=== PATIENT | male | born 2005 | race Caucasian/White ===

== ENCOUNTER 2023-09-04 13:00 | Inpatient (IN) ==
--- NOTE | 2023-09-04 13:41 | XRay Report ---
XR chest 1V portable HISTORY: Shortness of breath. Chest pain, nonspecific COMPARISON: None. FINDINGS: There is a left retrocardiac airspace opacity. The right lung is clear. No pleural effusion s. No pneumothorax. The heart is normal in size. No evidence for pulmonary edema. No acute fractures identified. IMPRESSION: A left retrocardiac airspace opacity. This likely represents a pneumonia. 1-2 month chest x-ray follo w-up recommended to ensure resolution. ACT 112: Negative or not required by law. Electronically signed by: Aj Hurt M.D. 09/04/2023 1:39 PM
--- NOTE | 2023-09-04 14:06 | Emergency Department Note ---
Impression & Plan SOB (shortness of breath), Pulmonary emboli, Pleuritic chest pain, Pneumonia, Leukocytosis ED Provider Note NAME: MATHEW ROQUE AGE: 17 SEX: M : 2005 ARRIVES VIA: Walk-In INFORMANT: [Patient] ED PROVIDER(S): [Shree Ortega MD] CHIEF COMPLAINT: Shortness of breath HISTORY OF PRESENT ILLNESS: The patient is a 17-year-old male with a history of bicuspid aortic valve who states that 2 weeks ago, he was diagnosed with pneumonia. He was on Augmentin for 1 week. He seemed about 80% better but then in the last week, things have worsened. He has been coughing more and in the last 24 hours has developed some left-sided chest pain that is worse to cough, breathe. He feels short of breath. Patient has a history of previous pneumothorax, he was concerned that he had redeveloped a pneumothorax. Patient does admit to a 5-hour car ride about a week ago, no history of previous DVT or PE. PMHx/PSHx/Social Hx: See Below PHYSICAL EXAM: GENERAL: Patient is in no acute distress. Thin. HEENT: No acute trauma, normocephalic atraumatic, mucous membranes moist, no nasal congestion. NECK: No stridor, no adenopathy, no meningismus, trachea is midline. LUNGS: Breath sounds somewhat diminished on the left. No wheezing or rhonchi, no respiratory distress. HEART: Without murmurs gallops or rubs, regular rate and rhythm. ABDOMEN: Soft, nontender, no peritonitis. EXTREMITIES: No cyanosis, full range of motion of all the joints without pain or difficulty. NEUROLOGIC: Oriented x 3, no acute motor or sensory deficits, no focal weakness. SKIN: No jaundice, no diaphoresis. DIFFERENTIAL DIAGNOSIS: Pneumonia, pneumothorax, PE, failed outpatient management, anemia, dysrhythmia or [place], among others. EMERGENCY DEPARTMENT PROCEDURES: MEDICAL DECISION MAKING: There is a mild leukocytosis, this could be consistent with infection. There was a normal hemoglobin and platelet count. INR slightly elevated at 1.2. No renal failure. No concerning electrolyte abnormality. Bilirubin was somewhat elevated at 2.2, the remaining liver enzymes were unremarkable. ECG showed a normal sinus rhythm, no obvious acute ischemia. Cardiac enzyme testing x 1 was not consistent with acute cardiac injury. Chest x-ray did show a left midlung pneumonia, no pneumothorax. Chest CT shows pulmonary emboli as well as a left- sided pneumonia. The patient presents with left sided pleuritic chest pain and dyspnea. He was recently treated outpatient with Augmentin for pneumonia. Patient was aggressively managed. He was given IV Toradol, IV doxycycline, IV ceftriaxone, albuterol via MDI, he was given IV Tylenol. Patient was given an IV bolus of heparin and placed on a heparin drip. The patient does appear to have pneumonia as well as pulmonary emboli. Certainly, both of these findings could explain his presentation. I spoke with the patient's mother over the phone. I spoke with the patient. Given the findings today, hospitalization is indicated. I did talk with case management, the on-call hospitalist was consulted. Patient does feel improved since treatment here in the ED. Prior/Outside records/notes reviewed: None. ECG per my interpretation: Indication was chest pain. The ECG shows a normal sinus rhythm with a rate of 86. There is an incomplete right bundle branch block. There is no acute ST elevation, no PVCs. The QTc is 430. Continuous Cardiac Monitoring per my interpretation: An order was placed for continuous cardiac monitoring. The monitor shows a rate of 81 with normal sinus rhythm. Imaging/x-ray results per my interpretation: Chest x-ray shows what appears to be a right midlung pneumonia. No pneumothorax or CHF. Chronic Medical/Social conditions affecting care: Previous pneumothorax. Care/Management discussed with: Case management, the on-call hospitalist. Level of care consideration(s): After review of the information above and other included data: --I believe the patient requires escalation of care to admission Critical Care Note: I have personally spent 51 minutes of critical care time in the direct management of this patient. This includes bedside care, interpretation of diagnostic studies, and testing, discussion with consultants, patient, and family members, and other required patient management activities. This 51 minutes is in excess of all separately billable procedures. DISPOSITION: Admission Past Med/Surg History Medical History Pneumothorax, right Social History Smoking Status: Never smoker Preferred Language: Greek Feels Safe at Home: Yes Allergies Allergies Allergy/AdvReac Type Severity Reaction Status Date / Time azithromycin [From Zithromax] Allergy Unknown Verified 09/04/23 15:02 Home Meds Home Medications Medication Instructions Recorded Confirmed lisdexamfetamine 10 mg capsule 10 mg PO DAILY 07/26/23 09/04/23 (Vyvanse) nadolol 40 mg tablet 40 mg PO DAILY 09/04/23 09/04/23 Previous Rx's Medication Instructions Recorded magnesium oxide 800 mg (2 x 400 mg magnesium) PO 08/04/23 DAILY #60 tabs riboflavin (vitamin B2) 400 mg 400 mg PO DAILY #30 tabs 08/04/23 tablet sumatriptan succinate 6 mg/0.5 mL 6 mg (0.5 mL) subcut ONCE #1 mL 08/04/23 subcutaneous pen injector (Imitrex STATdose Pen) Results & Data (ED) Vital Signs Vital Signs - 24 hr 09/04/23 13:12 09/04/23 13:17 09/04/23 13:17 Temperature 37.3 C Temperature Source Temporal Artery Scan Pulse Rate 93 H Pulse Rate [Apical] 81 Pulse Rhythm [Apical] Pulse Strength [Apical] Respiratory Rate 20 18 Respiratory Effort / Characteristics Non-Labored Spontaneous Respiratory Depth Normal Respiratory Pattern Regular Blood Pressure 110/73 Blood Pressure [Right Arm] 113/69 Blood Pressure Mean 85 Blood Pressure Mean [Right Arm] 83 Blood Pressure Position [Right Arm] Sitting Pulse Oximetry 94 97 96 Oxygen Delivery Method Room Air Room Air Room Air Sepsis Recent Fever Within 48 Hours No Sepsis New/Unexplained Change in Mental Status N/A Sepsis Action Taken by Nursing No Action Required 09/04/23 13:17 09/04/23 15:40 09/04/23 16:17 Temperature Temperature Source Pulse Rate 70 Pulse Rate [Apical] 64 Pulse Rhythm [Apical] Regular Pulse Strength [Apical] Normal Respiratory Rate 19 Respiratory Effort / Characteristics Non-Labored Spontaneous Respiratory Depth Normal Respiratory Pattern Regular Blood Pressure Blood Pressure [Right Arm] 98/52 L Blood Pressure Mean Blood Pressure Mean [Right Arm] 67 Blood Pressure Position [Right Arm] Semi-fowlers Pulse Oximetry 96 96 Oxygen Delivery Method Room Air Room Air Sepsis Recent Fever Within 48 Hours Sepsis New/Unexplained Change in Mental Status Sepsis Action Taken by Nursing 09/04/23 16:53 Temperature Temperature Source Pulse Rate Pulse Rate [Apical] 77 Pulse Rhythm [Apical] Regular Pulse Strength [Apical] Normal Respiratory Rate 17 Respiratory Effort / Characteristics Non-Labored Spontaneous Respiratory Depth Normal Respiratory Pattern Regular Blood Pressure Blood Pressure [Right Arm] 121/64 Blood Pressure Mean Blood Pressure Mean [Right Arm] 83 Blood Pressure Position [Right Arm] Semi-fowlers Pulse Oximetry 96 Oxygen Delivery Method Room Air Sepsis Recent Fever Within 48 Hours Sepsis New/Unexplained Change in Mental Status Sepsis Action Taken by [facility] Medications Current Medication List: was personally reviewed by me Laboratory Data Attestation: I reviewed the patient's lab results. 09/04/23 13:49 09/04/23 13:49 Lab Results 09/04/23 Range/Units 13:49 WBC 13.61 H (4.8-10.8) K/ul RBC 5.16 (4.70-6.10) M/uL Hgb 15.2 (14.0-18.0) g/dl Hct 43.4 (42.0-52.0) % MCV 84.1 (80.0-100.0) fL MCH 29.5 (25.0-34.0) pg MCHC 35.0 (32.0-36.0) g/dL RDW Std Deviation 39.8 (36.4-46.3) fL RDW Coeff of Fela 12.9 (11.5-14.5) % Plt Count 229 (130-400) K/uL MPV 11.0 (9.4-12.4) fL Immature Gran % (Auto) 0.4 % Neut % (Auto) 76.4 % Lymph % (Auto) 13.3 % [place] % (Auto) 8.6 % Eos % (Auto) 0.7 % Baso % (Auto) 0.6 % Neut # (Auto) 10.40 H (1.40-6.50) K/uL Lymph # (Auto) 1.81 (1.20-3.40) K/uL [place] # (Auto) 1.17 H (0.11-0.59) K/uL Eos # (Auto) 0.09 (0.00-0.50) K/uL Baso # (Auto) 0.08 (0.00-0.20) K/uL Immature Gran # (Auto) 0.06 (0.01-0.20) K/uL PT 13.0 H (9.0-12.0) Seconds INR 1.2 H (0.9-1.1) APTT 30 (21-31) Seconds PTT Ratio 1.1 Sodium 137 (136-145) mmol/L Potassium 3.8 (3.5-5.1) mmol/L Chloride 101 (98-107) mmol/L Carbon Dioxide 29 (21-32) mmol/L Anion Gap 7 (3-11) BUN 13 (6-23) mg/dl Creatinine 0.92 (0.6-1.4) mg/dl Est Cr Clr Drug Dosing 133.3 ml/min Est GFR ( Amer) 139.3 ml/min Est GFR (Non-Af Amer) 120.2 ml/min BUN/Creatinine Ratio 14.1 (10-20) Glucose 75 (70-99(Fasting)) mg/dl Calcium 9.6 (8.6-10.3) mg/dl Total Bilirubin 2.2 H (0.2-1.0) mg/dl AST 20 (13-39) U/L ALT 20 (7-52) U/L Alkaline Phosphatase 57 (34-104) U/L Troponin I High Sens 5.1 (0-20) pg/ml Total Protein 8.1 (6.0-8.3) gm/dl Albumin 4.4 (3.4-5.0) gm/dl Globulin 3.7 (2.5-4.0) gm/dl Albumin/Globulin Ratio 1.2 (0.9-2) Administered Medications Heparin Sodium/Dextrose (Heparin Sodium/Dextrose) 25,000 units in 500 mls @ 18 mls/hr IV .Q24H [facility]; Protocol Stop: 10/04/23 16:14 Last Admin: 09/04/23 16:30 Dose: 900 units/hr, 18 mls/hr Documented By: KAMILAH Co-signed By: MMG Discontinued Medications Albuterol (Albuterol Hfa 8 Gm Inhaler) 2 puffs INH NOW ONE Stop: 09/04/23 14:02 Last Admin: 09/04/23 14:19 Dose: 2 puffs Documented By: MIRYAM Heparin Sodium (Porcine) (Heparin Sod (Porcine) 1000 Unit/Ml) 4,000 units IV NOW ONE Stop: 09/04/23 16:31 Last Admin: 09/04/23 16:32 Dose: 4,000 units Documented By: KAMILAH Co-signed By: AMALIA Acetaminophen (Ofirmev) 1,000 mg in 100 mls @ 400 mls/hr IV NOW STA Stop: 09/04/23 14:15 Last Infusion: 09/04/23 14:49 Dose: Infused Documented By: Admin: 09/04/23 14:19 Dose: 400 mls/hr Documented By: MIRYAM Ceftriaxone Sodium (Rocephin) 2,000 mg in 50 mls @ 100 mls/hr IV NOW STA Stop: 09/04/23 14:30 Last Infusion: 09/04/23 16:12 Dose: Infused Documented By: Admin: 09/04/23 15:39 Dose: 100 mls/hr Documented By: KAMILAH Doxycycline Hyclate 100 mg/ (Dextrose) 100 mls @ 50 mls/hr IV NOW STA Stop: 09/04/23 17:50 Last Admin: 09/04/23 16:28 Dose: 50 mls/hr Documented By: KAMILAH Parenteral Electrolytes (Plasma-Lyte A Ph 7.4) 1,000 mls @ 999 mls/hr IV .Q1H1M ONE Stop: 09/04/23 17:04 Last Admin: 09/04/23 16:36 Dose: Not Given Documented By: KAMILAH Ioversol (Optiray 320 125ml) 119 ml IV ONCE ONE Stop: 09/04/23 14:58 Last Admin: 09/04/23 14:57 Dose: 119 ml Documented By: VENKAT Ketorolac Tromethamine (Ketorolac Tromethamine 15 Mg/Ml Vial) 15 mg IV NOW STA Stop: 09/04/23 14:02 Last Admin: 09/04/23 14:17 Dose: 15 mg Documented By: MIRYAM Imaging Data Radiologist's Impression: Chest X-Ray 09/04/23 13:17 XR chest 1V portable HISTORY: Shortness of breath. Chest pain, nonspecific COMPARISON: None. FINDINGS: There is a left retrocardiac airspace opacity. The right lung is clear. No pleural effusions. No pneumothorax. The heart is normal in size. No evidence for pulmonary edema. No acute fractures identified. IMPRESSION: A left retrocardiac airspace opacity. This likely represents a pneumonia. 1-2 month chest x-ray follow-up recommended to ensure resolution. ACT 112: Negative or not required by law. Electronically signed by: Aj Hurt M.D. 09/04/2023 1:39 PM Chest CTA 09/04/23 14:01 CHEST CTA for PULMONARY ARTERIES CT DOSE: 526.56 mGy.cm HISTORY: Shortness of breath. TECHNIQUE: Multiaxial CT images of the chest were performed following the intravenous administration of contrast to evaluate the pulmonary arteries. 3D/Maximal intensity projection images were also obtained. Sagittal and coronal reformations were also reviewed. A dose lowering technique was utilized adhering to the principles of ALARA. COMPARISON STUDY: None. FINDINGS: Normal caliber thoracic aorta with no evidence for a dissection. The heart is top normal in size. No pleural or pericardial effusions. Multiple scattered filling defects seen within the segmental/subsegmental pulmonary arteries of the bilateral lower lobes and right upper lobe consistent with pulmonary emboli. This is most pronounced within the left lower lobe. No mediastinal or right hilar lymphadenopathy. Mildly enlarged left hilar lymph node measuring 1 cm short axis diameter. This may be reactive. Normal caliber esophagus. Limited views of the upper abdomen demonstrate the normal liver and spleen. No acute fractures identified. Patchy consolidation within the left lower lobe. The right lung is clear. There is near complete mucoid opacification of the left lower lobe bronchi. IMPRESSION: 1. Multiple bilateral segmental/subsegmental pulmonary emboli most pronounced within the left lower lobe. 2. Patchy consolidation within the left lower lobe with near complete opacification of the left lower lobe bronchi. This favors a pneumonia and could be due to aspiration. A superimposed pulmonary infarct could also have a similar appearance. 3. Mild left hilar lymphadenopathy. This is likely reactive. ACT 112: Negative or not required by law. Electronically signed by: Aj Hurt M.D. 09/04/2023 3:27 PM Discharge Plan Visit Data Chief Complaint: Shortness of Breath/Dyspnea Stated Complaint: L SIDE PAIN, SOB ED Provider: Shree Ortega Discharge Problem: SOB (shortness of breath), Pulmonary emboli, Pleuritic chest pain, Pneumonia, Leukocytosis Patient Disposition: Admitted As Inpatient Condition: Serious Forms Stand Alone Forms: [employer] Prescriptions Prescriptions: No Action magnesium oxide 400 mg magnesium tablet 800 mg PO DAILY Qty: 60 0RF riboflavin (vitamin B2) 400 mg tablet 400 mg PO DAILY Qty: 30 0RF sumatriptan succinate [Imitrex STATdose Pen] 6 mg/0.5 mL pen injector 6 mg subcut ONCE Qty: 1 5RF lisdexamfetamine [Vyvanse] 10 mg Capsule 10 mg PO DAILY nadolol 40 mg Tablet 40 mg PO DAILY Referrals [facility] [Primary Care Provider] - Discharge Problem: Pulmonary emboli Qualifiers: Pulmonary embolism type: unspecified Chronicity: acute Acute cor pulmonale presence: with acute cor pulmonale Qualified Code(s): I26.09 - Other pulmonary embolism with acute cor pulmonale Pneumonia Qualifiers: Pneumonia type: due to unspecified organism Laterality: left Lung location: u nspecified part of lung Qualified Code(s): J18.9 - Pneumonia, unspecified organism Leukocytosis Qualifiers: Leukocytosis type: unspecified Qualified Code(s): D72.829 - Elevated white blood cell count, unspecified
[2023-09-04 14:12] LABS: Basophils # (auto) 0.08 K/uL (0.00-0.20); Basophils % (auto) 0.6 %; Eosinophils # (auto) 0.09 K/uL (0.00-0.50); Eosinophils % (auto) 0.7 %; Hematocrit (blood only) 43.4 % (42.0-52.0); Hemoglobin 15.2 g/dl (14.0-18.0); Immature Granulocytes # (auto) 0.06 K/uL (0.01-0.20); Immature Granulocytes % (auto) 0.4 %; Lymphocytes # (auto) 1.81 K/uL (1.20-3.40); Lymphocytes % (auto) 13.3 %; Mean Corpuscular Hemoglobin 29.5 pg (25.0-34.0); Mean Corpuscular Volume 84.1 fL (80.0-100.0); Monocytes # (auto) 1.17 K/uL (0.11-0.59); Monocytes % (auto) 8.6 %; Neutrophils % (auto) 76.4 %; Platelet Count 229 K/uL (130-400); RDW Coefficient of Variation 12.9 % (11.5-14.5); RDW Standard Deviation 39.8 fL (36.4-46.3); Red Blood Count 5.16 M/uL (4.70-6.10); White Blood Count 13.61 K/ul (4.8-10.8)
[2023-09-04] MEDS: KETOROLAC TROMETHAMINE 15 MG/ML VIAL IV STA (14:17)
[2023-09-04] MEDS: ALBUTEROL HFA 8 GM INHALER INH ONE (14:19)
[2023-09-04] MEDS: ACETAMINOPHEN 1,000 MG/100 ML VIAL IV STA (14:19)
[2023-09-04 14:32] LABS: Albumin Globulin Ratio 1.2 (0.9-2); Albumin Level 4.4 gm/dl (3.4-5.0); BUN Creatinine Ratio 14.1 (10-20); Bilirubin,Total 2.2 mg/dl (0.2-1.0); Calcium 9.6 mg/dl (8.6-10.3); Creatinine Clr Calc Pharmacy 133.3 ml/min; Est GFR (African American) 139.3 ml/min; Est GFR (Non-African American) 120.2 ml/min; Globulin 3.7 gm/dl (2.5-4.0); Potassium 3.8 mmol/L (3.5-5.1); Total Protein 8.1 gm/dl (6.0-8.3)
[2023-09-04 14:36] LABS: INR 1.2 (0.9-1.1); Partial Thromboplastin Ratio 1.1; Partial Thromboplastin Time 30 Seconds (21-31)
[2023-09-04 14:39] LABS: Troponin I High Sensitivity 5.1 pg/ml (0-20)
[2023-09-04] MEDS: OPTIRAY 320 125ml IV ONE (14:57)
--- NOTE | 2023-09-04 15:29 | CT Scan Report ---
CHEST CTA for PULMONARY ARTERIES CT DOSE: 526.56 mGy.cm HISTORY: Shortness of breath. TECHNIQUE: Multiaxial CT images of the chest were performed following the intravenous administration of contrast to evaluate the pulmonary arteries. 3D/Maximal intensity projection images were also obta ined. Sagittal and coronal reformations were also reviewed. A dose lowering technique was utilized a dhering to the principles of ALARA. COMPARISON STUDY: None. FINDINGS: Normal caliber thoracic aorta with no evidence for a dissection. The heart is top normal in size. No pleural or pericardial effusions. Multiple scattered filling defects seen within the segmen kael/subsegmental pulmonary arteries of the bilateral lower lobes and right upper lobe consistent with pulmonary emboli. This is most pronounced within the left lower lobe. No mediastinal or right hilar lymphadenopathy. Mildly enlarged left hilar lymph node measuring 1 cm short axis diameter. This may b e reactive. Normal caliber esophagus. Limited views of the upper abdomen demonstrate the normal liver and spleen. No acute fractures identified. Patchy consolidation within the left lower lobe. The righ t lung is clear. There is near complete mucoid opacification of the left lower lobe bronchi. IMPRESSION: 1. Multiple bilateral segmental/subsegmental pulmonary emboli most pronounced within the left lower l obe. 2. Patchy consolidation within the left lower lobe with near complete opacification of the left lower lobe bronchi. This favors a pneumonia and could be due to aspiration. A superimposed pulmonary infar ct could also have a similar appearance. 3. Mild left hilar lymphadenopathy. This is likely reactive. ACT 112: Negative or not required by law. Electronically signed by: Aj Hurt M.D. 09/04/2023 3:27 PM
[2023-09-04] MEDS: cefTRIAXone SODIUM 2,000 MG/50 ML BAG IV STA (15:39)
[2023-09-04] MEDS ORDERED: HEPARIN SOD (PORCINE) 1000 UNIT/ML IV ONE (16:06)
--- NOTE | 2023-09-04 16:14 | History & Physical Report ---
Date of Service September 04, 2023 Assessment & Plan (1) Pulmonary emboli: Plan: PE - Following 5+ hours of travel back from [place], recent pneumonia with bedrest. - CTA: 1. Multiple bilateral segmental/subsegmental pulmonary emboli most pr onounced within the left lower lobe. 2. Patchy consolidation within the left lower lobe with near complete opacification of the left lower lobe bronchi. This favors a pneumonia and could be due to aspiration. A superimposed pulmonary infarct could also have a similar appearance. 3. Mild left hilar lymphadenopathy. This is likely reactive. Heparinize, anticipate transition to DOAC 09/04 if doing well Discussed with patient's family as well, update given by phone. No known family history of VTE, patient is typically very active and even though he had driven back from [place] does make frequent stops and walks and was not immobilized for that. Was resting week prior with pneumonia; discussed risk/benefits of any hypercoagulable testing. Shared decision making will check factor V Leiden, and additionally antiphospholipid testing as this may impact his oral anticoagulation choice. No indication for thrombolytic therapy at time of admission (2) CAP (community acquired pneumonia): Plan: Pneumonia Discussed with family, notes that he was very ill with high fevers for about a week with pneumonia and did complete 7 days of Augmentin. Patient did have 90% improvement following his Augmentin course, overall felt improved until 3 days ago when his shortness of breath and different quality started. He did have some feeling of feverishness yesterday. Patient suspected of superimposed pneumonia based on leukocytosis, cough, and CT findings above. DDx does include pulmonary infarct and resolving pneumonia Covered with Rocephin/doxycycline. MRSA nare pending Sputum culture pending, blood culture pending Patient is not septic at time of admission Patient normotensive at time of admitting assessment (3) Migraine: Plan: History of migraines Stable, no acute neurologic symptoms on admission Verapamil continued. Patient did have transient hypotension however on recycled pressure is 120s systolic and has had no syncope/presyncope or hypotensive symptoms Plan Chronic stable issues: History of RIGHT Pneumothorax: Traumatic several years ago. 2/2 trauma playing hockey. No recurrence or issues since. DVT prophylaxis: Heparinized Disposition: Medical telemetry CODE STATUS: Full code History of Present Illness Primary Care Provider: [facility] Sean is a 17-year-old male who presents with multiple bilateral segmental and subsegmental PE was pronounced in the left lower lobe, patchy consolidation of the left lower lobe which could represent either pulmonary infarct or overlying pneumonia, and reactive left hilar lymphadenopathy. No saddle PE is noted. EKG is normal sinus with incomplete right bundle branch block. She does significant PE burden, superimposed findings suspicious for pneumonia versus pulmonary infarct, and history of pulmonary complications including right pneumothorax patient was recommended for observation prior to transition to DOAC therapy. 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 [employer] like he was improving but not 100% [place] [address] Since middle of the week +cough, dyspnea, weakness and washed out. 24 hours developed L pleuritic chest pain Bicust AV Hx of pneumothorax on RIGHT Per patient: PNA 2 weeks ago, completed 1 week of Augmentin Returned from [place] 7 days ago. Initially did feel better with Augmentin, got ~90% better but then 3 days ago again developed progressive shortness of breath. This felt different than his SoB with PNA. HIs PNA felt more like tightnight and was associated with fever and a bad cough. This time the last 3 days he has had burning pain with coughing and is having much more pain on deep breathing. [employer] a little feverish yesterday, no night sweats/chills and no fever today No nausea, vomiting, no diarrhea, no abdominal No leg swelling or leg pain FHX of DVT/PE in paternal grandmother, does not know additional details. No DVT/PE in 1st degree relatives. He takes verapamil for migraines which does lower his blood pressure a little. Was actually on the higher side on vyvance. Hx of RIGHT spontanerous PTX 3 years ago, traumatic while playing hockey. No recurrence. Had a chest tube at the time. No complications. Medical History: Reviewed. Bicuspid AV. Migraines. sPTX. Medications: Reviewed. Surgical History: Reviewed Family history: Reviewed Allergies: Reviewed. Azithromycin --> rash Social History: No tobacco, no vaping. ETOH socially, last was 1 drink last week and then >2 weeks before that. No marijuana, no recreational drug use Code Status: Full Allergies Allergy/AdvReac Type Severity Reaction Status Date / Time azithromycin [From Zithromax] Allergy Unknown Verified 09/04/23 15:02 Home Medications Medication Instructions Recorded Confirmed Type lisdexamfetamine 10 mg capsule 10 mg PO DAILY 07/26/23 09/04/23 History (Denise) magnesium oxide 800 mg (2 x 400 mg magnesium) PO 08/04/23 09/04/23 Rx DAILY #60 tabs riboflavin (vitamin B2) 400 mg 400 mg PO DAILY #30 tabs 08/04/23 09/04/23 Rx tablet sumatriptan succinate 6 mg/0.5 mL 6 mg (0.5 mL) subcut ONCE #1 mL 08/04/23 09/04/23 Rx subcutaneous pen injector (Imitrex STATdose Pen) nadolol 40 mg tablet 40 mg PO DAILY 09/04/23 09/04/23 History Past Med/Surg History Medical History Pneumothorax, right Social History Smoking Status: Never smoker Preferred Language: Marshallese Feels Safe at Home: Yes Physical Exam Physical Exam: General: A&Ox3. NAD. Cooperative. HEENT: Atraumatic, normocephalic. Vision/hearing intact Pulm: CTAB A&P. -wheezes, -rales, -rhonchi. Symmetrical chest rise. No increased work of breathing. No respiratory distress. Cardiac: RRR, -mrg. Radial pulses intact and symmetrical. Abdominal: Nontender, nondistended, soft. BS present. Ext: warm, dry. NO calf swelling or asymmetry. No pedal edema Results & Data Results & Data Vital Signs (Past 12 Hours) Vital Signs Temp Pulse Pulse Resp BP BP Pulse Ox 09/04/23 15:40 64 19 98/52 L 96 09/04/23 13:17 96 09/04/23 13:17 81 18 113/69 96 09/04/23 13:17 97 09/04/23 13:12 37.3 C 93 H 20 110/73 94 O2 Del Method 09/04/23 15:40 Room Air 09/04/23 13:17 Room Air 09/04/23 13:17 Room Air 09/04/23 13:17 Room Air 09/04/23 13:12 Room Air PG Care Time/CCT Total # of Minutes Spent Total Time Spent with Patient: Total time spent is greater than 50% in coordination of care (as documented) at patient's floor/unit and/or counseling patient: Coding Level of Care Code 93807 INT INP/OBS CARE MIN Diagnoses Pulmonary emboli I26.99 CAP (community acquired pneumonia) J18.9 Migraine G43.909
[2023-09-04] MEDS: DOXYCYCLINE HYCLATE 100 MG in DEXTROSE 5% MINI-B 100 ML IV STA (16:28)
[2023-09-04] MEDS: HEPARIN SODIUM/DEXTROSE 25,000 UNITS/500 ML BAG IV SCH (16:30)
[2023-09-04] MEDS: HEPARIN SOD (PORCINE) 1000 UNIT/ML IV ONE (16:32)
[2023-09-04] MEDS: PLASMA-LYTE A 1,000 ML IV ONE (16:36)
[2023-09-04] MEDS: ACETAMINOPHEN 325 MG TAB PO PRN (21:30)
[2023-09-04] MEDS: Heparin IV Adult Wt-Based Low-Dose w/ INITIAL Bolus Protocol IV STA (21:32)
[2023-09-04 23:53] LABS: ANTI-Xa, UFH(UnfractionatedHep < 0.10 IU/ml (0.3-0.7)
[2023-09-05] MEDS: HEPARIN IV BOLUS 4,500 UNITS in SYRINGE 0 ML IV ONE ×2 (00:45→13:52)
[2023-09-05] MEDS: HYDROmorphone INJ 0.5 MG/0.5 ML SYR IV PRN (02:46)
[2023-09-05 06:22] LABS: ANTI-Xa, UFH(UnfractionatedHep 0.23 IU/ml (0.3-0.7)
[2023-09-05] MEDS: nadoloL 40 MG TAB PO SCH (07:25)
[2023-09-05] MEDS: MAGNESIUM OXIDE 400 MG TAB PO SCH (07:25)
[2023-09-05] MEDS: DOXYCYCLINE HYCLATE 100 MG CAP PO SCH (07:45)
--- NOTE | 2023-09-05 08:46 | Electrocardiogram Report ---
Test Reason : Blood Pressure : / mmHG Vent. Rate : 086 BPM Atrial Rate : 086 BPM P-R Int : 168 ms QRS Dur : 098 ms QT Int : 360 ms P-R-T Axes : 076 100 075 degrees QTc Int : 430 ms Normal sinus rhythm Biatrial enlargement Rightward axis Incomplete right bundle branch block Abnormal ECG No previous ECGs available Confirmed by Brandt Norwood ([id number]) on 09/05/2023 8:46:07 AM Referred By: REFERRED SELF Confirmed By:José Manuel Norwood
[2023-09-05] MEDS ORDERED: NON-FORMULARY MEDICATION (Riboflavin (Vitamin B2) 400 mg tablet) PO SCH (09:00)
--- NOTE | 2023-09-05 09:22 | Hospitalist Progress Note ---
Date of Service September 05, 2023 Assessment & Plan (1) Leukocytosis: (2) Pneumonia: (3) Pleuritic chest pain: (4) Pulmonary emboli: (5) SOB (shortness of breath): (6) CAP (community acquired pneumonia): Plan 17 yo male PMHx migraine, ADHD, traumatic pneumothorax admitted for SOB and pleuritic chest pain found to have pneumonia and b/l subsegmental PEs #PE - Following 5+ hours of travel back from [place], recent pneumonia with bedrest. - CTA: 1. Multiple bilateral segmental/subsegmental pulmonary emboli most pronounced within the left lower lobe. 2. Patchy consolidation within the left lower lobe with near complete opacification of the left lower lobe bronchi. This favors a pneumonia and could be due to aspiration. A superimposed pulmonary infarct could also have a similar appearance. 3. Mild left hilar lymphadenopathy. This is likely reactive. Heparinize, anticipate transition to DOAC 09/04 if doing well -f/u hypercoagulable labs #Pneumonia Discussed with family, notes that he was very ill with high fevers for about a week with pneumonia and did complete 7 days of Augmentin. Patient did have 90% improvement following his Augmentin course, overall felt improved until 3 days ago when his shortness of breath and different quality started. He did have some feeling of feverishness yesterday. Patient suspected of superimposed pneumonia based on leukocytosis, cough, and CT findings above. DDx does include pulmonary infarct and resolving pneumonia Covered with Rocephin - MRSA nares negative, d/c doxycycline Sputum culture pending, blood culture pending Patient is not septic at time of admission Patient normotensive at time of admitting assessment #History of migraines Stable, no acute neurologic symptoms on admission Verapamil continued. Patient did have transient hypotension however on recycled pressure is 120s systolic and has had no syncope/presyncope or hypotensive symptoms Chronic stable issues: History of RIGHT Pneumothorax: Traumatic several years ago. 2/2 trauma playing hockey. No recurrence or issues since. DVT prophylaxis: Heparinized Disposition: Medical telemetry CODE STATUS: Full code Admission and Anticipated Discharge Date Admission Date: September 04, 2023 Subjective Patient seen and evaluated at bedside this morning. No acute events overnight. Continues to have significant pain and shortness of breath. VSS. Labs with leukocytosis, hypercoagulable labs pending. Otherwise, denies PFEIFFER, N/V/D. Review of Systems Review of Systems: reviewed, per HPI Physical Exam Physical Exam: Constitutional: uncomfortable appearing HEENT: NCAT, no conjunctival injection CV: regular rhythm, no murmur appreciated, extremities well-perfused, no LE edema Resp: CTABL, no wheezes/rales/rhonchi appreciated, mild increased WOB MSK: no gross deformities appreciated, pectus excavatum Skin: warm, dry, no rash appreciated Neuro: alert, oriented, no focal neurologic deficit appreciated Results & Data Results & Data Vital Signs (Past 12 Hours) Vital Signs Temp Pulse Pulse Pulse Resp BP BP 09/05/23 08:45 36.9 C 69 18 110/68 09/05/23 03:51 36.6 C 68 18 108/68 09/05/23 02:59 69 14 09/05/23 01:52 76 25 H 109/70 09/05/23 00:12 79 09/04/23 23:20 36.9 C 72 16 105/64 09/04/23 22:39 09/04/23 21:36 36.9 C 88 22 128/80 09/04/23 21:28 77 Pulse Ox O2 Del Method O2 Flow Rate 09/05/23 08:45 98 Nasal Cannula 09/05/23 03:51 94 Room Air 09/05/23 02:59 98 Nasal Cannula 2 09/05/23 01:52 98 Nasal Cannula 2 09/05/23 00:12 09/04/23 23:20 97 Nasal Cannula 2 09/04/23 22:39 Nasal Cannula 2 09/04/23 21:36 95 Nasal Cannula 2 09/04/23 21:28 Resident Activity Tracking Resident Involvement: Resident Care Provided Care Provided: Adult Hospital Medicine (1) Leukocytosis Leukocytosis type: unspecified Qualified Code(s): D72.829 - Elevated white blood cell count, unspecified (2) Pneumonia Laterality: left Lung location: unspecified part of lung Pneumonia type: due to unspecified organism Qualified Code(s): J18.9 - Pneumonia, unspecified organism (4) Pulmonary emboli Acute cor pulmonale presence: with acute cor pulmonale Chronicity: acute Pulmonary embolism type: unspecified Qualified Code(s): I26.09 - Other pulmonary embolism with acute cor pulmonale
--- NOTE | 2023-09-05 09:52 | Hospitalist Progress Note ---
Date of Service September 05, 2023 Assessment & Plan (1) Pulmonary emboli: Plan: -CT shows multiple pulmonary emboli and left lobe pneumonia. -Patient on Heparin, anticipate transition to direct oral anticoagulation depending on results of factor V leiden and antiphospholipid testing and cause of unprovoked PE as this may impact his oral anticoagulation choice. -Patient has a severe 8/10 sharp chest pain. Pain will be managed with Tylenol PRN, Toradol 30mg PRN, Hydromorphine PRN. -Albuterol PRN for shortness of breath (2) CAP (community acquired pneumonia): Plan: -Patient is not septic at time of admission -Patient was very ill with high fevers for about a week with pneumonia and did complete 7 days of Augmentin. -Patient did have 90% improvement following his Augmentin course, overall felt improved until 3 days ago when his shortness of breath and different quality started. He did have some feeling of feverishness yesterday. -Patient suspected of superimposed pneumonia based on leukocytosis, cough, and CT findings above, however differential diagnosis does include pulmonary infarct and resolving pneumonia -Doxycycline discontinued, patient on ceftriaxone. -Sputum culture pending, blood culture pending Plan DVT prophylaxis: Heparinized Disposition: Medical telemetry CODE STATUS: Full code Admission and Anticipated Discharge Date Admission Date: September 04, 2023 Supervising Physician Co-Signing Physician Notes ATTESTATION I also saw the patient and confirmed perdue portions of the history and exam. I agree with the impression and plan in the medical student/resident documentation, and as summarized below. Upon our midmorning exam, the patient is seated in bed; he tells us that the left-sided chest/flank/back pain is more of a dull ache versus a sharp stabbing pain of yesterday. Pain is worsened with deep inspiration and/or cough. Patient with history of ADHD. Recent diagnosis of bicuspid aortic valve. EXAM 103/63, 60, 22, 37.1, 93% on nasal cannula 3 L/min Pleasant alert. No acute distress appreciated. HEENT unremarkable. Neck is supple. Trachea is midline. Heart regular rate and rhythm. Lungs decreased on the left compared to the right, but otherwise clear throughout DATA Imaging CT scan of the chest upon admission demonstrates multiple bilateral segmental/subsegmental pulmonary emboli most pronounced within the left lower lobe; patchy consolidation within the left lower lobe with near complete opacification of the left lower lobe bronchi. Micro Sputum collected 09/05/2023 culture pending. Blood cultures collected 09/04/2023 showed no growth at 24 hours IMPRESSION & PLAN Pulmonary embolus Symptomatically improving Continue IV heparin, likely transition to DOAC tomorrow Check lower extremity Dopplers and transthoracic cardiogram today Discussed need for anticoagulation of 3-6 months; advised he does not play hockey or other contact sports while on systemic anticoagulation Will need PCP follow-up thereafter; consider additional hypercoagulable workup after discontinuation of initial anticoagulation Active antiphospholipid antibodies were drawn upon admission and pending Continue supplemental oxygen, wean as able Tylenol and Toradol as needed Community-acquired pneumonia Continue ceftriaxone Follow-up chest x-ray in a.m. Additional per resident documentation Subjective Patient is a 17-year old male with a past medical history of pneumothorax who presented to the ED with shortness of breath and was admitted to the hospital with a left lower lobe pneumonia and multiple bilateral pulmonary emboli with most pronounced ones within the left lower lobe. Patient was diagnosed with a pneumonia 2 weeks ago and has been on Augmentin for 1 week. Patient has just had a 5+ hour travel back from [place]. He finished his course of antibiotics for the pneumonia last week and noticed that his symptoms got worse on . His shortness of breath and severe sharp chest pain worsened on tuesday when he came into the ED. Since yesterday, patient reports that he is not doing better. He is having the same shortness of breath even with oxygen, has chest pain in his upper left side and left back side. He describes the pain as a sharp 8/10 pain left-sided chest pain. Review of Systems Review of Systems: General: Reports fevers over the past 2 weeks due to his pneumonia. Denies unintentional weightloss and fatigue Respiratory: Reports shortness of breath, cough, and sharp left-sided chest pain. Cardiovascular: Denies lower extremity edema and palpitations MSK: Denies joint pains and muscle weakness GI: Denies nausea, vomiting, abdominal pain, and any changes in bowel movements : Denies dysuria, retention, hematuria Skin: Denies rashes, lesions, moles, and skin concerns Heme/Lymph: Denies bruising and bleeding Physical Exam Physical Exam: Constitutional: Patient appears uncomfortable with difficulty breathing. Patient is awake, alert, and oriented HEENT: PERRL, normocephalic, atraumatic, no lymphadenopathy, trachea midline, no JVD CV: regular rhythm, no murmur appreciated, extremities well-perfused, no LE edema Resp: Breath sounds diminished on the left, no rales, rhonchi or wheezing MSK: no gross deformities appreciated, pectus excavatum Skin: warm, dry, no rash appreciated Neuro: alert, oriented, no focal neurologic deficit appreciated Results & Data Results & Data Vital Signs (Past 12 Hours) Vital Signs Temp Pulse Pulse Pulse Resp BP BP 09/05/23 08:45 36.9 C 69 18 110/68 09/05/23 08:00 09/05/23 03:51 36.6 C 68 18 108/68 09/05/23 02:59 69 14 09/05/23 01:52 76 25 H 109/70 09/05/23 00:12 79 09/04/23 23:20 36.9 C 72 16 105/64 09/04/23 22:39 09/04/23 21:36 36.9 C 88 22 128/80 Pulse Ox O2 Del Method O2 Flow Rate 09/05/23 08:45 98 Nasal Cannula 09/05/23 08:00 Room Air 09/05/23 03:51 94 Room Air 09/05/23 02:59 98 Nasal Cannula 2 09/05/23 01:52 98 Nasal Cannula 2 09/05/23 00:12 09/04/23 23:20 97 Nasal Cannula 2 09/04/23 22:39 Nasal Cannula 2 09/04/23 21:36 95 Nasal Cannula 2 Laboratory Results Laboratory Results WBC 13.61 K/ul (4.8-10.8) H 09/04/23 13:49 RBC 5.16 M/uL (4.70-6.10) 09/04/23 13:49 Hgb 15.2 g/dl (14.0-18.0) 09/04/23 13:49 Hct 43.4 % (42.0-52.0) 09/04/23 13:49 MCV 84.1 fL (80.0-100.0) 09/04/23 13:49 MCH 29.5 pg (25.0-34.0) 09/04/23 13:49 MCHC 35.0 g/dL (32.0-36.0) 09/04/23 13:49 RDW Std Deviation 39.8 fL (36.4-46.3) 09/04/23 13:49 RDW Coeff of Fela 12.9 % (11.5-14.5) 09/04/23 13:49 Plt Count 229 K/uL (130-400) 09/04/23 13:49 MPV 11.0 fL (9.4-12.4) 09/04/23 13:49 Immature Gran % (Auto) 0.4 % 09/04/23 13:49 Neut % (Auto) 76.4 % 09/04/23 13:49 Lymph % (Auto) 13.3 % 09/04/23 13:49 [place] % (Auto) 8.6 % 09/04/23 13:49 Eos % (Auto) 0.7 % 09/04/23 13:49 Baso % (Auto) 0.6 % 09/04/23 13:49 Neut # (Auto) 10.40 K/uL (1.40-6.50) H 09/04/23 13:49 Lymph # (Auto) 1.81 K/uL (1.20-3.40) 09/04/23 13:49 [place] # (Auto) 1.17 K/uL (0.11-0.59) H 09/04/23 13:49 Eos # (Auto) 0.09 K/uL (0.00-0.50) 09/04/23 13:49 Baso # (Auto) 0.08 K/uL (0.00-0.20) 09/04/23 13:49 Immature Gran # (Auto) 0.06 K/uL (0.01-0.20) 09/04/23 13:49 PT 13.0 Seconds (9.0-12.0) H 09/04/23 13:49 INR 1.2 (0.9-1.1) H 09/04/23 13:49 APTT 30 Seconds (21-31) 09/04/23 13:49 PTT Ratio 1.1 09/04/23 13:49 Heparin Anti-Xa, Unfract 0.23 IU/ml (0.3-0.7) L 09/05/23 05:31 Sodium 137 mmol/L (136-145) 09/04/23 13:49 Potassium 3.8 mmol/L (3.5-5.1) 09/04/23 13:49 Chloride 101 mmol/L (98-107) 09/04/23 13:49 Carbon Dioxide 29 mmol/L (21-32) 09/04/23 13:49 Anion Gap 7 (3-11) 09/04/23 13:49 BUN 13 mg/dl (6-23) 09/04/23 13:49 Creatinine 0.92 mg/dl (0.6-1.4) 09/04/23 13:49 Est Cr Clr Drug Dosing 133.3 ml/min 09/04/23 13:49 Est GFR ( Amer) 139.3 ml/min 09/04/23 13:49 Est GFR (Non-Af Amer) 120.2 ml/min 09/04/23 13:49 BUN/Creatinine Ratio 14.1 (10-20) 09/04/23 13:49 Glucose 75 mg/dl (70-99(Fasting)) 09/04/23 13:49 Calcium 9.6 mg/dl (8.6-10.3) 09/04/23 13:49 Total Bilirubin 2.2 mg/dl (0.2-1.0) H 09/04/23 13:49 AST 20 U/L (13-39) 09/04/23 13:49 ALT 20 U/L (7-52) 09/04/23 13:49 Alkaline Phosphatase 57 U/L (34-104) 09/04/23 13:49 Troponin I High Sens 5.1 pg/ml (0-20) 09/04/23 13:49 Total Protein 8.1 gm/dl (6.0-8.3) 09/04/23 13:49 Albumin 4.4 gm/dl (3.4-5.0) 09/04/23 13:49 Globulin 3.7 gm/dl (2.5-4.0) 09/04/23 13:49 Albumin/Globulin Ratio 1.2 (0.9-2) 09/04/23 13:49 Nasal Screen MRSA (PCR) Negative (Negative) 09/04/23 Unknown Diagnostic Findings Chest X-Ray 09/04/23 13:17 XR chest 1V portable HISTORY: Shortness of breath. Chest pain, nonspecific COMPARISON: None. FINDINGS: There is a left retrocardiac airspace opacity. The right lung is clear. No pleural effusions. No pneumothorax. The heart is normal in size. No evidence for pulmonary edema. No acute fractures identified. IMPRESSION: A left retrocardiac airspace opacity. This likely represents a pneumonia. 1-2 month chest x-ray follow-up recommended to ensure resolution. ACT 112: Negative or not required by law. Electronically signed by: Aj Hurt M.D. 09/04/2023 1:39 PM Chest CTA 09/04/23 14:01 CHEST CTA for PULMONARY ARTERIES CT DOSE: 526.56 mGy.cm HISTORY: Shortness of breath. TECHNIQUE: Multiaxial CT images of the chest were performed following the intravenous administration of contrast to evaluate the pulmonary arteries. 3D/Maximal intensity projection images were also obtained. Sagittal and coronal reformations were also reviewed. A dose lowering technique was utilized adhering to the principles of ALARA. COMPARISON STUDY: None. FINDINGS: Normal caliber thoracic aorta with no evidence for a dissection. The heart is top normal in size. No pleural or pericardial effusions. Multiple scattered filling defects seen within the segmental/subsegmental pulmonary arteries of the bilateral lower lobes and right upper lobe consistent with pulmonary emboli. This is most pronounced within the left lower lobe. No mediastinal or right hilar lymphadenopathy. Mildly enlarged left hilar lymph node measuring 1 cm short axis diameter. This may be reactive. Normal caliber esophagus. Limited views of the upper abdomen demonstrate the normal liver and spleen. No acute fractures identified. Patchy consolidation within the left lower lobe. The right lung is clear. There is near complete mucoid opacification of the left lower lobe bronchi. IMPRESSION: 1. Multiple bilateral segmental/subsegmental pulmonary emboli most pronounced within the left lower lobe. 2. Patchy consolidation within the left lower lobe with near complete opacification of the left lower lobe bronchi. This favors a pneumonia and could be due to aspiration. A superimposed pulmonary infarct could also have a similar appearance. 3. Mild left hilar lymphadenopathy. This is likely reactive. ACT 112: Negative or not required by law. Electronically signed by: Aj Hurt M.D. 09/04/2023 3:27 PM (1) Pulmonary emboli Acute cor pulmonale presence: with acute cor pulmonale Chronicity: acute Pulmonary embolism type: unspecified Qualified Code(s): I26.09 - Other p ulmonary embolism with acute cor pulmonale
[2023-09-05] MEDS: ALBUT/IPRATROP 3MG/0.5MG NEB 3 ML VIAL NEB PRN (12:31)
[2023-09-05 12:56] LABS: ANTI-Xa, UFH(UnfractionatedHep < 0.10 IU/ml (0.3-0.7)
[2023-09-05] MEDS: KETOROLAC 30 MG/ML VIAL IV PRN (14:37)
[2023-09-05] MEDS: cefTRIAXone SODIUM 2,000 MG in DEXTROSE 5 % MINI-B 50 ML IV SCH (15:48)
[2023-09-05 20:14] LABS: ANTI-Xa, UFH(UnfractionatedHep 0.25 IU/ml (0.3-0.7)
[2023-09-06 04:53] LABS: BUN Creatinine Ratio 14.5 (10-20); Calcium 8.8 mg/dl (8.6-10.3); Creatinine Clr Calc Pharmacy 150.2 ml/min; Est GFR (African American) 147.8 ml/min; Est GFR (Non-African American) 127.6 ml/min; Potassium 3.8 mmol/L (3.5-5.1)
[2023-09-06 05:01] LABS: ANTI-Xa, UFH(UnfractionatedHep 0.21 IU/ml (0.3-0.7)
[2023-09-06 05:39] LABS: Basophils # (auto) 0.06 K/uL (0.00-0.20); Basophils % (auto) 0.6 %; Eosinophils # (auto) 0.44 K/uL (0.00-0.50); Eosinophils % (auto) 4.7 %; Hematocrit (blood only) 36.3 % (42.0-52.0); Hemoglobin 12.1 g/dl (14.0-18.0); Immature Granulocytes # (auto) 0.03 K/uL (0.01-0.20); Immature Granulocytes % (auto) 0.3 %; Lymphocytes # (auto) 2.03 K/uL (1.20-3.40); Lymphocytes % (auto) 21.9 %; Mean Corpuscular Hemoglobin 28.5 pg (25.0-34.0); Mean Corpuscular Hgb Conc 33.3 g/dL (32.0-36.0); Mean Corpuscular Volume 85.4 fL (80.0-100.0); Mean Platelet Volume 10.9 fL (9.4-12.4); Monocytes # (auto) 0.96 K/uL (0.11-0.59); Monocytes % (auto) 10.3 %; Neutrophils # (auto) 5.77 K/uL (1.40-6.50); Neutrophils % (auto) 62.2 %; Platelet Count 162 K/uL (130-400); RDW Coefficient of Variation 13.2 % (11.5-14.5); Red Blood Count 4.25 M/uL (4.70-6.10); White Blood Count 9.29 K/ul (4.8-10.8)
--- NOTE | 2023-09-06 07:22 | Ultrasound Report ---
US venous doppler LE BI CLINICAL HISTORY: Hx of pulmonary emboli TECHNIQUE: Bilateral lower extremity real-time compression venous ultrasound with Color Doppler imagi ng. Utilizing real-time ultrasonic imaging multiple real time high-resolution ultrasonic images with compression and noncompression maneuvers of the deep venous system in addition to color doppler imagi ng were performed from the common femoral vein through the proximal calf veins. COMPARISON: None available at the time of this dictation. FINDINGS/IMPRESSION: Currently there is normal compressibility of the deep venous system from the common femoral vein thro ugh the proximal calf veins. No superficial venous thrombosis is identified. ACT 112: Negative or not required by law. Electronically signed by: Charlie Garcia M.D. 09/06/2023 7:21 AM
--- NOTE | 2023-09-06 10:23 | XRay Report ---
XR chest 2V PA/lateral CLINICAL HISTORY: Follow-up pneumonia TECHNIQUE: 2 views of the chest were obtained. Comparison: Comparison is made to chest radiograph 09/04/2023 FINDINGS: No lines and tubes are seen. The cardiomediastinal silhouette is normal. Left lower lung predominant airspace opacities are increased in conspicuity from prior exam. No evidence of pleural effusion or p neumothorax. IMPRESSION: Interval increased conspicuity of left lower lung airspace opacity compatible with worsening pneumoni a. ACT 112: Negative or not required by law. Electronically signed by: Charlie Garcia M.D. 09/06/2023 10:22 AM
[2023-09-06 10:50] LABS: ANTI-Xa, UFH(UnfractionatedHep 0.21 IU/ml (0.3-0.7)
--- NOTE | 2023-09-06 12:53 | XCELERA ---
[id number]
--- NOTE | 2023-09-06 13:16 | Hospitalist Progress Note ---
Date of Service September 06, 2023 Assessment & Plan (1) Pulmonary emboli: Plan: - Chest pain is now a 7/10 and improving - CT shows multiple pulmonary emboli and left lobe pneumonia. -Lower extremity doppler was negative with no venous thrombosis. - Patient on Heparin -Transthoracic echocardiogram results pending. * Transition to direct oral anticoagulation and consider additional hypercoagulable workup after discontinuation of initial anticoagulation * Advised to avoid hockey or other contact sports while on systemic anticoagulation * Check factor V Leiden, and additionally antiphospholipid testing * Albuterol PRN for shortness of breath * Continue pain management as needed. (2) Pneumonia: Plan: -Patient suspected of superimposed pneumonia based on leukocytosis, cough, and CT findings above. DDx does include pulmonary infarct and resolving pneumonia -Chest x-ray shows interval increased conspicuity of left lower lung airspace opacity compatible with worsening pneumonia. - Patient is doing better today compared to yesterday, -Sputum culture pending, blood culture pending * Continue ceftriaxone and monitor (3) Migraine: Plan: -Stable, no acute neurologic symptoms on admission -Patient reports having no migraines or headaches while at the hospital and is not taking Toradol * Continue to monitor and take medication as needed Admission and Anticipated Discharge Date Admission Date: September 04, 2023 Supervising Physician Co-Signing Physician Notes ATTESTATION I also saw the patient and confirmed perdue portions of the history and exam. I agree with the impression and plan in the medical student/resident documentation, and as summarized below. He is feeling better today; he tells us that today (this morning) is the first he has been able to take full and deep breaths without much in terms of discomfort/limitation. Still with occ, mildly productive cough (yellow pheglm). Remains on supplemental oxygen as he feels better when he is on it; discussed weaning oxygen so we can get a pulse ox on room air and with activity EXAM 96/52, 61, 16, 37.1, 97% on nasal cannula 2 L/min Pleasant alert. No acute distress appreciated. HEENT unremarkable. Neck is supple. Trachea is midline. Heart regular rate and rhythm. Lungs decreased on the left compared to the right, but otherwise clear throughout DATA Imaging Echocardiogram this morning shows normal left ventricular systolic function, flattened septum consistent with RV pressure overload, right ventricular pressure elevated 30-40 mmHg. Micro Sputum collected 09/05/2023 culture pending. Blood cultures collected 09/04/2023 showed no growth at 24 hours IMPRESSION & PLAN Pulmonary embolus Symptomatically improving Since he is clinically stable and improving will transition to oral anticoagulant (note also low-end Anti Xa assay) Discussed need for anticoagulation of 3-6 months; practically speaking, would most likely continue until he returns to college for fall (about five months) Will need some elements of hypercoagulability panel after discontinuation Advised not play hockey or other contact sports while on systemic anticoagulation Wean O2 Increase activity Tylenol as needed Community-acquired pneumonia Symptomatically improving; suspect imaging lagging behind Continue ceftriaxone Additional per resident documentation Subjective Last night, patient reports having a mild episode of right-sided chest pain for 20 minutes that then completely resolved. Today, patient reports improvement in symptoms, including reduced shortness of breath and chest pain localized to the upper left side and back, rated at 7/10 in severity without pain medication.Patient states he is able to ambulate very short distances without shortness of breath. Review of Systems Review of Systems: General: Reports fevers over the past 2 weeks. Denies unintentional weightloss and fatigue Respiratory: Reports shortness of breath, cough, and left-sided chest pain with acute episode of right-sided chest pain overnight. Cardiovascular: Denies lower extremity edema and palpitations MSK: Denies joint pains and muscle weakness GI: Denies nausea, vomiting, abdominal pain, and any changes in bowel movements Skin: Denies rashes, lesions, moles, and skin concerns Heme/Lymph: Denies bruising and bleeding Physical Exam Physical Exam: General: Patient is awake, alert, and oriented, in no acute distress Eye: PERRL, EOMI HEENT: normocephalic, atraumatic, no lymphadenopathy, trachea midline, no JVD Respiratory: Breath sounds slightly diminished on the left, no rales, rhonchi or wheezing CV: normal rate and rhythm, no murmurs, rubs, or gallops, no edema, capillary refill < 2s GI: Normal bowel sounds, abdomen soft, non-tender, non-distended, no organomegaly Neurologic: alert and oriented Psychiatric: calm and cooperative, appropriate mood and affect Results & Data Results & Data Vital Signs (Past 12 Hours) Vital Signs Temp Pulse Pulse Resp BP Pulse Ox O2 Del Method 09/06/23 11:37 37.1 C 61 16 96/52 L 97 Nasal Cannula 03/19/24 09:00 Nasal Cannula 09/06/23 07:56 37.2 C 59 L 16 109/63 97 Nasal Cannula 09/06/23 07:00 64 09/06/23 03:38 36.7 C 52 L 18 102/63 96 Room Air 09/06/23 01:34 Nasal Cannula O2 Flow Rate 09/06/23 11:37 2 09/06/23 09:00 2.5 09/06/23 07:56 2 09/06/23 07:00 09/06/23 03:38 09/06/23 01:34 2 Laboratory Results 09/06/23 09/06/23 09/05/23 10:13 04:26 19:29 WBC 9.29 RBC 4.25 L Hgb 12.1 L D Hct 36.3 L MCV 85.4 MCH 28.5 MCHC 33.3 RDW Std Deviation 41.0 RDW Coeff of Fela 13.2 Plt Count 162 MPV 10.9 Immature Gran % (Auto) 0.3 Neut % (Auto) 62.2 Lymph % (Auto) 21.9 Dolores % (Auto) 10.3 Eos % (Auto) 4.7 Baso % (Auto) 0.6 Neut # (Auto) 5.77 Lymph # (Auto) 2.03 Dolores # (Auto) 0.96 H Eos # (Auto) 0.44 Baso # (Auto) 0.06 Immature Gran # (Auto) 0.03 Heparin Anti-Xa, Unfract 0.21 L 0.21 L 0.25 L Sodium 137 Potassium 3.8 Chloride 103 Carbon Dioxide 27 Anion Gap 7 BUN 12 Creatinine 0.83 Est Cr Clr Drug Dosing 150.2 Est GFR ( Amer) 147.8 Est GFR (Non-Af Amer) 127.6 BUN/Creatinine Ratio 14.5 Glucose 106 H Calcium 8.8 09/05/23 09/05/23 17:19 12:20 WBC RBC Hgb Hct MCV MCH MCHC RDW Std Deviation RDW Coeff of Fela Plt Count MPV Immature Gran % (Auto) Neut % (Auto) Lymph % (Auto) Dolores % (Auto) Eos % (Auto) Baso % (Auto) Neut # (Auto) Lymph # (Auto) Dolores # (Auto) Eos # (Auto) Baso # (Auto) Immature Gran # (Auto) Heparin Anti-Xa, Unfract 0.40 < 0.10 L Sodium Potassium Chloride Carbon Dioxide Anion Gap BUN Creatinine Est Cr Clr Drug Dosing Est GFR ( Amer) Est GFR (Non-Af Amer) BUN/Creatinine Ratio Glucose Calcium Diagnostic Findings Venous Doppler Study 09/05/23 12:10 US venous doppler LE BI CLINICAL HISTORY: Hx of pulmonary emboli TECHNIQUE: Bilateral lower extremity real-time compression venous ultrasound with Color Doppler imaging. Utilizing real-time ultrasonic imaging multiple real time high-resolution ultrasonic images with compression and noncompression maneuvers of the deep venous system in addition to color doppler imaging were performed from the common femoral vein through the proximal calf veins. COMPARISON: None available at the time of this dictation. FINDINGS/IMPRESSION: Currently there is normal compressibility of the deep venous system from the common femoral vein through the proximal calf veins. No superficial venous thrombosis is identified. ACT 112: Negative or not required by law. Electronically signed by: Charlie Garcia M.D. 09/06/2023 7:21 AM Chest X-Ray 09/06/23 08:42 XR chest 2V PA/lateral CLINICAL HISTORY: Follow-up pneumonia TECHNIQUE: 2 views of the chest were obtained. Comparison: Comparison is made to chest radiograph 09/04/2023 FINDINGS: No lines and tubes are seen. The cardiomediastinal silhouette is normal. Left lower lung predominant airspace opacities are increased in conspicuity from prior exam. No evidence of pleural effusion or pneumothorax. IMPRESSION: Interval increased conspicuity of left lower lung airspace opacity compatible with worsening pneumonia. ACT 112: Negative or not required by law. Electronically signed by: Charlie Garcia M.D. 09/06/2023 10:22 AM (1) Pulmonary emboli Acute cor pulmonale presence: with acute cor pulmonale Chronicity: acute Pulmonary embolism type: unspecified Qualified Code(s): I26.09 - Other pulmonary embolism with acute cor pulmonale (2) Pneumonia Laterality: left Lung location: unspecified part of lung Pneumonia type: due to unspecified organism Qualified Code(s): J18.9 - Pneumonia, unspecified organism
[2023-09-06] MEDS: APIXABAN 5 MG TABLET PO SCH (20:53)
[2023-09-06] MEDS: [UNRECOGNIZED DRUG - REMARK] ONE (20:59)
--- NOTE | 2023-09-07 14:50 | Hospitalist Progress Note ---
Date of Service September 07, 2023 Assessment & Plan (1) Pulmonary emboli: Plan: - Chest pain continues to improve - CT shows multiple pulmonary emboli and left lobe pneumonia. -Lower extremity Doppler was negative with no venous thrombosis. -Now on Eliquis 10mg BID -Transthoracic echocardiogram results pending. * Check factor V Leiden, and additionally antiphospholipid testing * Albuterol PRN for shortness of breath * Continue pain management as needed. (2) Pneumonia: Plan: - Patient suspected of superimposed pneumonia based on leukocytosis, cough, and CT findings above. DDx does include pulmonary infarct and resolving pneumonia - Chest x-ray shows interval increased conspicuity of left lower lung airspace opacity compatible with worsening pneumonia. - Patient is doing better today compared to yesterday, - Sputum culture pending, blood culture pending * Continue ceftriaxone plan to txn to oral abx on discharge (3) Migraine: Plan: - Stable, no acute neurologic symptoms on admission - Patient reports having no migraines or headaches while at the hospital - Will hold nadolol while inpatient Admission and Anticipated Discharge Date Admission Date: September 04, 2023 Supervising Physician Co-Signing Physician Notes ATTESTATION I also saw the patient and confirmed perdue portions of the history and exam. I agree with the impression and plan in the medical student/resident documentation, and as summarized below. He is feeling a little better today compared to yesterday. Really has not been out of bed too much to see how he does with activity. Mother is at bedside again this morning. Seems to have done okay in terms of his SpO2 off oxygen, but he did put the nasal cannula back on last night for comfort. EXAM 102/62, 70, 18, 37.8, 95% on room air Pleasant alert. No acute distress appreciated. HEENT unremarkable. Heart regular rate and rhythm. Lungs clear throughout DATA Imaging Echocardiogram this morning shows normal left ventricular systolic function, flattened septum consistent with RV pressure overload, right ventricular press ure elevated 30-40 mmHg. Micro Sputum collected 09/05/2023 shows light normal jasen Blood cultures collected 09/04/2023 showed no growth at 48 hours IMPRESSION & PLAN Pulmonary embolus Symptomatically improving Now on Eliquis Discussed need for anticoagulation of 3-6 months; practically speaking, would most likely continue until he returns to college for fall (about five months) Will need some elements of hypercoagulability panel after discontinuation Advised not play hockey or other contact sports while on systemic anticoagulation Wean O2 and increase activity Community-acquired pneumonia Symptomatically improving; very low-grade fever noted this afternoon, will monitor Continue ceftriaxone Additional per resident documentation Subjective Patient seen and evaluated at bedside this morning. No acute events overnight. Pain with inspiration continues to improve. Off oxygen for the afternoon yesterday, continues to wear oxygen at night for comfort. Sats have remained >90 throughout admission w/wo oxygen supplementation. Has ambulated in the room but not otherwise. Otherwise, no acute complaints today. Review of Systems Review of Systems: reviewed, per HPI Physical Exam Physical Exam: Constitutional: well-appearing, no acute distress HEENT: NCAT, no conjunctival injection CV: regular rhythm, no murmur appreciated, extremities well-perfused, no LE edema Resp: CTABL, no wheezes/rales/rhonchi appreciated, no increased work of breathing GI: soft, nondistended, nontender, BS normoactive MSK: no gross deformities appreciated Skin: warm, dry, no rash appreciated Neuro: alert, oriented, no focal neurologic deficit appreciated Results & Data Results & Data Vital Signs (Past 12 Hours) Vital Signs Temp Pulse Pulse Resp BP Pulse Ox O2 Del Method 09/07/23 11:16 36.6 C 104 H 18 100/62 95 Room Air 09/07/23 07:28 36.6 C 70 18 100/61 96 Room Air 09/07/23 07:00 87 09/07/23 02:54 36.7 C 67 16 109/67 99 Nasal Cannula O2 Flow Rate 09/07/23 11:16 09/07/23 07:28 09/07/23 07:00 09/07/23 02:54 2 Resident Activity Tracking Resident Involvement: Resident Care Provided Care Provided: Adult Hospital Medicine (1) Pulmonary emboli Acute cor pulmonale presence: with acute cor pulmonale Chronicity: acute Pulmonary embolism type: unspecified Qualified Code(s): I26.09 - Other pulmonary embolism with acute cor pulmonale (2) Pneumonia Laterality: left Lung location: unspecified part of lung Pneumonia type: due to unspecified organism Qualified Code(s): J18.9 - Pneumonia, unspecified organism
[2023-09-08 06:50] LABS: Basophils # (auto) 0.05 K/uL (0.00-0.20); Basophils % (auto) 0.7 %; Eosinophils # (auto) 0.53 K/uL (0.00-0.50); Eosinophils % (auto) 7.2 %; Hematocrit (blood only) 37.9 % (42.0-52.0); Hemoglobin 13.1 g/dl (14.0-18.0); Immature Granulocytes # (auto) 0.04 K/uL (0.01-0.20); Immature Granulocytes % (auto) 0.5 %; Lymphocytes # (auto) 1.51 K/uL (1.20-3.40); Lymphocytes % (auto) 20.5 %; Mean Corpuscular Hemoglobin 28.9 pg (25.0-34.0); Mean Corpuscular Hgb Conc 34.6 g/dL (32.0-36.0); Mean Corpuscular Volume 83.7 fL (80.0-100.0); Mean Platelet Volume 10.9 fL (9.4-12.4); Monocytes # (auto) 0.79 K/uL (0.11-0.59); Monocytes % (auto) 10.7 %; Neutrophils # (auto) 4.43 K/uL (1.40-6.50); Neutrophils % (auto) 60.4 %; Platelet Count 201 K/uL (130-400); RDW Coefficient of Variation 13.1 % (11.5-14.5); RDW Standard Deviation 39.6 fL (36.4-46.3); Red Blood Count 4.53 M/uL (4.70-6.10); White Blood Count 7.35 K/ul (4.8-10.8)
[2023-09-08 08:58] LABS: ANTI-Xa, UFH(UnfractionatedHep 1.31 IU/ml (0.3-0.7)
--- NOTE | 2023-09-08 14:39 | Discharge Summary ---
Date of Service September 08, 2023 Admission HPI Per Admitting Provider Sean is a 17-year-old male who presents with multiple bilateral segmental and subsegmental PE was pronounced in the left lower lobe, patchy consolidation of the left lower lobe which could represent either pulmonary infarct or overlying pneumonia, and reactive left hilar lymphadenopathy. No saddle PE is noted. EKG is normal sinus with incomplete right bundle branch block. She does significant PE burden, superimposed findings suspicious for pneumonia versus pulmonary infarct, and history of pulmonary complications including right pneumothorax patient was recommended for observation prior to transition to DOAC therapy. 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 [place] like he was improving but not 100% [place] [address] Since middle of the week +cough, dyspnea, weakness and washed out. 24 hours developed L pleuritic chest pain Bicust AV Hx of pneumothorax on RIGHT Per patient: PNA 2 weeks ago, completed 1 week of Augmentin Returned from [place] 7 days ago. Initially did feel better with Augmentin, got ~90% better but then 3 days ago again developed progressive shortness of breath. This felt different than his SoB with PNA. HIs PNA felt more like tightnight and was associated with fever and a bad cough. This time the last 3 days he has had burning pain with coughing and is having much more pain on deep breathing. [place] a little feverish yesterday, no night sweats/chills and no fever today No nausea, vomiting, no diarrhea, no abdominal No leg swelling or leg pain FHX of DVT/PE in paternal grandmother, does not know additional details. No DVT/PE in 1st degree relatives. He takes verapamil for migraines which does lower his blood pressure a little. Was actually on the higher side on vyvance. Hx of RIGHT spontanerous PTX 3 years ago, traumatic while playing hockey. No recurrence. Had a chest tube at the time. No complications. Medical History: Reviewed. Bicuspid AV. Migraines. sPTX. Medications: Reviewed. Surgical History: Reviewed Family history: Reviewed Allergies: Reviewed. Azithromycin --> rash Social History: No tobacco, no vaping. ETOH socially, last was 1 drink last week and then >2 weeks before that. No marijuana, no recreational drug use Code Status: Full Admission Exam Per Admitting Provider General: A&Ox3. NAD. Cooperative. HEENT: Atraumatic, normocephalic. Vision/hearing intact Pulm: CTAB A&P. -wheezes, -rales, -rhonchi. Symmetrical chest rise. No increased work of breathing. No respiratory distress. Cardiac: RRR, -mrg. Radial pulses intact and symmetrical. Abdominal: Nontender, nondistended, soft. BS present. Ext: warm, dry. NO calf swelling or asymmetry. No pedal edema Principal Diagnosis PE, PNA Discharge Exam Constitutional: well-appearing, no acute distress HEENT: NCAT, no conjunctival injection CV: regular rhythm, no murmur appreciated, extremities well-perfused, no LE edema Resp: CTABL, no wheezes/rales/rhonchi appreciated, no increased work of breathing GI: soft, nondistended, nontender, BS normoactive MSK: no gross deformities appreciated Skin: warm, dry, no rash appreciated Neuro: alert, oriented, no focal neurologic deficit appreciated Discharge Data Allergies Allergy/AdvReac Type Severity Reaction Status Date / Time azithromycin [From Zithromax] Allergy Unknown Verified 09/04/23 15:02 Consultations 09/04/23 15:54 ED Decision to Admit Stat Ordered Studies 09/04/23 14:01 CT angio chest PE protocol Stat 09/05/23 12:10 US venous doppler LE BI Routine Hospital Course (1) Pulmonary emboli: - Chest pain continues to improve - CT shows multiple pulmonary emboli and left lobe pneumonia. -Lower extremity Doppler was negative with no venous thrombosis. -Now on Eliquis 10mg BID for the next 10 doses, 5mg thereafter -Transthoracic echocardiogram results mild r heart strain, bicuspid aortic valve * Check factor V Leiden, and additionally antiphospholipid testing (2) Pneumonia: - Patient suspected of superimposed pneumonia based on leukocytosis, cough, and CT findings above. DDx does include pulmonary infarct and resolving pneumonia - Chest x-ray shows interval increased conspicuity of left lower lung airspace opacity compatible with worsening pneumonia. - Patient is doing better today compared to yesterday, - Sputum culture pending, blood culture pending * Continue ceftriaxone plan to txn to oral cefdinir 300mg BID at discharge (3) Migraine: - Stable, no acute neurologic symptoms on admission - Patient reports having no migraines or headaches while at the hospital - Will hold nadolol while inpatient okay to resume at discharge, possibly at lower dose Total Time Total Time Spent Total Time Spent (In Minutes): I spent 35 minutes seeing the patient, reviewing results, and completing documentation. Discharge Plan Discharge Items Patient Disposition: Home - Self-Care Reason For Visit: PE, PNA Discharge Diagnosis: PE, PNA Condition on Discharge: Good Activity: As commented below Activity Comment: Resume regular activity as tolerated Lifting: Gradually increase as tolerated Exercise/Sports: Gradually increase as tolerated Exercise Comment: Limit exercise to aerobic, non-contact activities Non-emergency contact: Primary Care Provider Call non-emergency contact if: you have any medication questions, your pain is worsening, you have a fever and your temperature is above 101 Follow-up/Referrals: [facility] [Primary Care Provider] - Momo Rodriguez DO [Resident] - 09/20/23 1:00 pm Diet: Regular Addtl Attending Provider Instructions: You were admitted to the hospital for shortness of breath and chest pain. You were found to have a pulmonary emboli (blood clots in your lungs) and pneumonia You were treated with blood thinners and antibiotics. While you were here you had an echocardiogram (ultrasound of your heart) that showed a slight increase in activity of the right side of your heart. This is to be expected in the setting of pulmonary embolism. There was not evidence of heart failure. When you go home we will continue to treat your pneumonia with cefdinir, an antibiotic in the same class as ceftriaxone, the antibiotic you received through the IV, you will continue to take this antibiotic for the next five days. You will also continue to take Eliquis (apixaban), your blood thinner, for the next 3-6 months. See below for instructions to finish your loading dose and then for continuing therapy. A discharge summary will be sent to your primary care physician to ensure continuity of care. Please bring this discharge summary with you to your next office appointment so that your provider can review it at that time. Follow-up appointments: You have an appointment with Momo Rodriguez DO at [facility] ([address] [place] [address]) on 09/20/23 at 1:00PM, you should arrive at 12:45 to check in and complete paperwork prior to your appointment. If you are unable to make this appointment, or have any other questions, their office can be reached at . Medications: Your medication list has been reviewed and reconciled upon discharge to ensure accuracy and continuity of care. An updated list of all your medications is included with your hospital discharge paperwork. Please review this list closely, and make note of any changes. We sent a new medication called Eliquis (apixaban) to your pharmacy. You should take 10mg (two tabs) for the next 10 doses, beginning tonight. After that, you will take 5mg (1 tab) twice daily for the next 3-6 months. We will discuss the length of your treatment at your follow up appointment. Likely you will continue to take this medication until you return from summer. We sent a new medication called Cefdinir to your pharmacy. Take Cefdinir (300mg) one tablet twice daily for 5 days. If you have any issues filling these prescriptions, please call [phone] and ask to leave a message for Dr. Momo Rodriguez. Take your medications as instructed; do not skip a dose of your medicines. Make sure all of your doctors know every medicine you are taking (including [id number] medicines, vitamins, and supplements). Call your primary care provider before taking any new medicines (including [id number] medicines, vitamins, and supplements), because some of these may interact with your current medications, or may make your symptoms worse. Tell your primary care provider if you cannot afford your medications. CONTACT YOUR PRIMARY CARE PROVIDER if you experience any of the following: Increasing shortness of breath Increasing pain Difficulty following your treatment plan, or difficulty taking medications CALL 911 OR GO TO THE EMERGENCY DEPARTMENT if you experience any of the following: Sudden, severe abdominal pain or nausea/vomiting Severe chest pain, or chest pain that radiates (moves) to your jaw or arm Sudden, severe shortness of breath or difficulty breathing Thank you for allowing us to participate in your care. Pending Studies at Discharge: Yes Stand-Alone Forms: [facility] Release Medications and DC Order Prescriptions: New Eliquis 5 mg tablet 10 mg PO BID Qty: 20 0RF apixaban 5 mg tablet 5 mg PO BID 30 Days Qty: 60 0RF cefdinir 300 mg capsule 300 mg PO BID 5 Days Qty: 10 0RF Continued magnesium oxide 400 mg magnesium tablet 800 mg PO DAILY Qty: 60 0RF riboflavin (vitamin B2) 400 mg tablet 400 mg PO DAILY Qty: 30 0RF sumatriptan succinate [Imitrex STATdose Pen] 6 mg/0.5 mL pen injector 6 mg subcut ONCE Qty: 1 5RF lisdexamfetamine [Vyvanse] 10 mg Capsule 10 mg PO DAILY nadolol 40 mg Tablet 40 mg PO DAILY Discharge Orders: Discharge Order (Routine); Ordered 09/08/23 Ordered By: Momo Rodriguez Admission Data Admit Date/Time: 09/07/23 14:43 Attending Provider: Marco Calderon Admit Provider: Yrn Oates Primary Care Provider: [facility] Other Providers: Yrn Oates Supervising Physician Co-Signing Physician Notes ATTESTATION I also saw the patient and confirmed perdue portions of the history and exam. I agree with the impression and plan in the resident documentation, and as summarized below. Mother is at bedside again this morning. He is feeling well this morning. Activity without significant dyspnea. Still has a cough, no worse. EXAM 100/60, 63, 16, 36.5, 96% on room air Pleasant alert. No acute distress appreciated. HEENT unremarkable. Heart regular rate and rhythm. Lungs clear throughout DATA Imaging Echocardiogram this morning shows normal left ventricular systolic function, flattened septum consistent with RV pressure overload, right ventricular pressure elevated 30-40 mmHg. Micro Sputum collected 09/05/2023 shows light normal jasen Blood cultures collected 09/04/2023 showed no growth at 48 hours IMPRESSION & PLAN Pulmonary embolus Community-acquired pneumonia Symptomatically improving with respect to both, adequate oxygenation on room air, afebrile Eliquis Discussed need for anticoagulation of 3-6 months; practically speaking, would most likely continue until he returns to college for fall (about five months) Will need some elements of hypercoagulability panel after discontinuation Advised not play hockey or other contact sports while on systemic anticoagulation Complete course of cefdinir Additional per resident documentation Resident Activity Tracking Resident Involvement: Resident Care Provided Care Provided: Adult Hospital Medicine
[2023-09-11 03:48] LABS: Factor 5 Mutation NEGATIVE
[2023-09-14 16:56] LABS: Anti Cardiolipin Ab IgG <2.0 GPL-U/mL; Anti Cardiolipin Ab IgM <2.0 MPL-U/mL; B2 Glycoprotein IgG <2.0 U/mL (<20.0); B2 Glycoprotein IgM <2.0 U/mL (<20.0)
== END 2023-09-08 15:44 | disposition home or self-care (01) | DRG 175 ==
LOC: ED 13:00 → 2N 13:00 → SUATTDRO 16:06 → 2N 21:02